=== PATIENT | female | born 1950 | race Two or more races ===

== ENCOUNTER 2017-09-01 07:29 | Outpatient (CLI) | payer OTHER ==
[~2017-09-01 07:29] MED LIST: LOTREL 5-10 MG1 CAP; LOTREL 5-10 MG1 CAP PO; METFORMIN HCL500 MG PO; PROTONIX40 MG PO
== END 2017-09-01 14:38 | disposition home or self-care (01) ==
LOC: MAMO-SONO 07:29
DX: D24.1 Benign neoplasm of right breast (principal)

== ENCOUNTER 2018-01-09 07:37 | Outpatient (CLI) | payer OTHER | END 2018-01-09 08:06 | disposition home or self-care (01) | LOC: RAD 07:37 | DX: R10.9 Unspecified abdominal pain (principal); M12.9 Arthropathy, unspecified; M19.90 Unspecified osteoarthritis, unspecified site ==

== ENCOUNTER 2018-10-03 07:39 | Outpatient (CLI) | payer OTHER | END 2018-10-03 07:59 | disposition home or self-care (01) | LOC: MAMO-SONO 07:39 | DX: Z12.31 Encounter for screening mammogram for malignant neoplasm of breast (principal); Z87.898 Personal history of other specified conditions; N63.10 Unspecified lump in the right breast, unspecified quadrant; N63.20 Unspecified lump in the left breast, unspecified quadrant; M77.52 Other enthesopathy of left foot and ankle ==

== ENCOUNTER 2018-10-03 09:37 | Outpatient (CLI) | payer OTHER | END 2018-10-03 09:47 | disposition home or self-care (01) | LOC: NUCLEAR 09:37 | DX: M81.0 Age-related osteoporosis without current pathological fracture (principal) ==

== ENCOUNTER → 2018-10-10 | Outpatient (CLI) | payer OTHER | END | disposition home or self-care (01) | LOC: TOM 08:30 | DX: R41.2 Retrograde amnesia (principal); R55 Syncope and collapse ==

== ENCOUNTER 2019-05-25 07:28 | Outpatient (CLI) | payer OTHER | END 2019-05-25 07:32 | disposition home or self-care (01) | LOC: SONOGRAMA 07:28 | DX: R10.13 Epigastric pain (principal) ==

== ENCOUNTER 2019-05-31 09:12 | Outpatient (CLI) | payer OTHER | END 2019-05-31 09:26 | disposition home or self-care (01) | LOC: NUCLEAR 09:12 | DX: R60.0 Localized edema (principal); M79.9 Soft tissue disorder, unspecified ==

== ENCOUNTER 2021-07-21 07:27 | Outpatient (CLI) | payer OTHER | END 2021-07-21 07:35 | disposition home or self-care (01) | LOC: RAD 07:27 | PROVIDERS: ATTEND Physical Medicine & Rehabilitation | DX: M51.37 Other intervertebral disc degeneration, lumbosacral region (principal); M16.0 Bilateral primary osteoarthritis of hip; M50.30 Other cervical disc degeneration, unspecified cervical region ==

== ENCOUNTER 2021-09-03 07:29 | Outpatient (CLI) | payer OTHER | END 2021-09-03 07:35 | disposition home or self-care (01) | LOC: MAMO-SONO 07:29 | PROVIDERS: ATTEND Internal Medicine Cardiovascular Disease | DX: R92.0 Mammographic microcalcification found on diagnostic imaging of breast (principal); N60.11 Diffuse cystic mastopathy of right breast; Z12.31 Encounter for screening mammogram for malignant neoplasm of breast; N64.59 Other signs and symptoms in breast; R31.29 Other microscopic hematuria; N28.89 Other specified disorders of kidney and ureter ==

== ENCOUNTER 2021-12-25 05:25 | Day surgery (SDC) | payer OTHER | END 2021-12-25 14:55 | disposition home or self-care (01) | LOC: CIR.AMB 05:25 | PROVIDERS: ATTEND Urology | DX: C67.9 Malignant neoplasm of bladder, unspecified (principal); K21.9 Gastro-esophageal reflux disease without esophagitis; R31.0 Gross hematuria; Z20.822 Contact with and (suspected) exposure to COVID-19; I10 Essential (primary) hypertension; E11.9 Type 2 diabetes mellitus without complications; Z79.84 Long term (current) use of oral hypoglycemic drugs ==

== ENCOUNTER 2022-01-18 07:14 | Outpatient (CLI) | payer OTHER | END 2022-01-18 07:20 | disposition home or self-care (01) | LOC: TOM 07:14 | PROVIDERS: ATTEND Internal Medicine Cardiovascular Disease | DX: R10.9 Unspecified abdominal pain (principal); K57.30 Diverticulosis of large intestine without perforation or abscess without bleeding; N80.9 Endometriosis, unspecified ==

== ENCOUNTER 2023-01-20 10:22 | Outpatient (CLI) | payer OTHER | END 2023-01-20 10:26 | disposition home or self-care (01) | LOC: RAD 10:22 | PROVIDERS: ATTEND Internal Medicine Cardiovascular Disease | DX: M12.9 Arthropathy, unspecified (principal) ==

== ENCOUNTER → 2024-08-07 07:41 | Outpatient (CLI) | payer OTHER ==
[2024-08-07 08:49] LABS: CREATININE SERUM 0.73 mg/dL (0.55-1.02); GFR 77.72
== END | disposition home or self-care (01) ==
LOC: LAB 07:41
PROVIDERS: ATTEND Radiology Diagnostic Radiology
DX: R32 Unspecified urinary incontinence (principal)

== ENCOUNTER → 2024-08-09 | Outpatient (CLI) | payer OTHER | END | disposition home or self-care (01) | LOC: TOM 07:12 | PROVIDERS: ATTEND Internal Medicine Hepatology | DX: R10.32 Left lower quadrant pain (principal) | CPT/HCPCS: 74177; Q9965 ==

== ENCOUNTER 2025-02-05 09:35 | Outpatient (CLI) | payer OTHER | END 2025-02-05 09:41 | disposition home or self-care (01) | LOC: MAMO-SONO 09:35 | PROVIDERS: ATTEND Internal Medicine Cardiovascular Disease | DX: N60.11 Diffuse cystic mastopathy of right breast (principal); N60.12 Diffuse cystic mastopathy of left breast; Z12.31 Encounter for screening mammogram for malignant neoplasm of breast; N95.9 Unspecified menopausal and perimenopausal disorder ==

== ENCOUNTER → 2025-02-21 | Outpatient (CLI) | payer OTHER | END | disposition home or self-care (01) | LOC: NUCLEAR 10:14 | PROVIDERS: ATTEND Internal Medicine Cardiovascular Disease | DX: M81.0 Age-related osteoporosis without current pathological fracture (principal) ==

== ENCOUNTER 2025-05-20 07:04 | Outpatient (CLI) | payer OTHER | END 2025-05-20 07:06 | disposition home or self-care (01) | LOC: SONOGRAMA 07:04 | PROVIDERS: ATTEND Internal Medicine Cardiovascular Disease | DX: I10 Essential (primary) hypertension (principal) ==